=== PATIENT | male | born 1965 | race Caucasian/White ===

== ENCOUNTER 2018-02-14 20:26 | Emergency (ER) | payer OTHER ==
[2018-02-14] MEDS ORDERED: ALBUTEROL 2.5 MG/3 ML NEB SOL ONE (21:39)
[2018-02-14] MEDS ORDERED: predniSONE 20 MG TAB ONE (21:39)
[2018-02-14] MEDS ORDERED: IPRATROPIUM BROM 0.5MG/2.5ML ONE (21:39)
[2018-02-14 21:47] LABS: Absolute Lymphocytes (CBC) 0.8 K/uL (0.7-4.9); Absolute Monocytes 0.4 K/uL (0.1-1.3); Basophils % 0.4 % (0-1.3); Hematocrit 42.3 % (39.6-49.0); Lymphocytes % 9.8 % (15.3-44.8); MCH 30.9 pg (27.0-35.0); MCV 90.8 fL (80-100); MPV 7.8 fL (7.6-11.3); Monocytes % 5.3 % (3.3-12.3); RBC Red Blood Cell Count 4.66 M/uL (4.33-5.43)
[2018-02-14 21:50] LABS: Protime INR 1.05
[2018-02-14 22:07] LABS: Bilirubin Direct 0.2 mg/dL (0-0.2); Bilirubin Total 0.6 mg/dL (0.2-1.0); Magnesium 2.1 mg/dL (1.8-2.4); Potassium 3.9 mmol/L (3.5-5.1); Protein, Total 7.6 g/dL (6.4-8.2)
[2018-02-14] MEDS ORDERED: ACETAMINOPHEN 500 MG TAB ONE (22:21)
[2018-02-14] MEDS ORDERED: LEVALBUTEROL 1.25 MG/3 ML NEB ONE (23:21)
--- NOTE | 2018-02-14 23:35 | ER ---
Nurse's Notes [facility] Name: Jake Haynes II Age: 52 yrs Sex: Male : 1965 Arrival Date: 02/14/2018 Time: 20:29 Bed 20 Private MD: Thomas Montoya Diagnosis: Bronchitis, not specified as acute or chronic Presentation: 02/14 20:52 Presenting complaint: Patient states: He has been having a chronic cough since August. ea Pt reports last Friday he started getting SOB and wheezing. Pt reports the wheezing and coughing has gotten worse since then. Transition of care: patient was not received from another setting of care. Onset of symptoms was February 14, 2018. Risk Assessment: Do you want to hurt yourself or someone else? Patient reports no desire to harm self or others. Initial Sepsis Screen: Does the patient meet any 2 criteria? No. Patient's initial sepsis screen is negative. Does the patient have a suspected source of infection? No. Patient's initial sepsis screen is negative. Care prior to arrival: Medication(s) given: pro air inhaler. 20:52 Method Of Arrival: Ambulatory ea 20:52 Acuity: SONIDO 3 ea Triage Assessment: 20:58 General: Appears uncomfortable, Behavior is calm, cooperative, appropriate for age. ea Pain: Denies pain. EENT: No signs and/or symptoms were reported regarding the EENT system. Neuro: Level of Consciousness is awake, alert, obeys commands, Oriented to person, place, time, situation. Cardiovascular: Patient's skin is warm and dry. Respiratory: Reports shortness of breath on exertion Airway is patent Respiratory effort is even, unlabored, Respiratory pattern is regular, symmetrical, Breath sounds with wheezes bilaterally. Onset: The symptoms/episode began/occurred yesterday, the patient has mild shortness of breath. GI: Parent/caregiver reports the patient having bloating. : No signs and/or symptoms were reported regarding the genitourinary system. Derm: Skin is pink, warm \T\ dry. Musculoskeletal: Circulation, motion, and sensation intact. Historical: - Allergies: 20:57 No Known Allergies; ea - Home Meds: 20:57 benzonatate oral oral [Active]; amlodipine oral [Active]; ProAir HFA inhalation ea inhalation [Active]; Albuterol Inhl [Active]; Methylprednisolone Oral [Active]; - PMHx: 20:57 Hypertension; ea - Immunization history:: Adult Immunizations up to date. - Social history:: Smoking status: Patient/guardian denies using tobacco. - Ebola Screening: : No symptoms or risks identified at this time. Screenin:01 Abuse screen: Denies threats or abuse. Nutritional screening: No deficits noted. ea Tuberculosis screening: No symptoms or risk factors identified. Fall Risk None identified. Assessment: 22:51 Reassessment: Patient and/or family updated on plan of care and expected duration. Pain ea level reassessed. Patient is alert, oriented x 3, equal unlabored respirations, skin warm/dry/pink. 23:31 Reassessment: Patient and/or family updated on plan of care and expected duration. Pain ea level reassessed. Patient is alert, oriented x 3, equal unlabored respirations, skin warm/dry/pink. 23:49 Reassessment: Patient and/or family updated on plan of care and expected duration. Pain ea level reassessed. Patient is alert, oriented x 3, equal unlabored respirations, skin warm/dry/pink. Discharge instructions given to patient, verbalized the understanding of instruction Patient denies pain at this time. Patient states feeling better. Vital Signs: 21:00 BP 137 / 74; Pulse 90; Resp 20; Temp 98.2; Pulse Ox 96% on R/A; Weight 156.49 kg; ea Height 5 ft. 10 in. (177.80 cm); Pain 0/10; 22:51 BP 125 / 73; Pulse 93; Resp 18; Pulse Ox 98% on R/A; Pain 0/10; ea 23:40 BP 129 / 76; Pulse 80; Resp 18; Temp 98; Pulse Ox 98% on R/A; Pain 0/10; ea 21:00 Body Mass Index 49.50 (156.49 kg, 177.80 cm) ea ED Course: 20:29 Patient arrived in ED. al2 20:30 Thomas Montoya MD is Private Physician. al2 20:52 Alyssa Gutiérrez RN is Primary Nurse. ea 20:55 Triage completed. ea 21:01 Patient has correct armband on for positive identification. Bed in low position. Call ea light in reach. Side rails up X 1. 21:01 Arm band placed on right wrist. Patient placed in an exam room, on a stretcher, on ea pulse oximetry. 21:12 Campbell Curry NP is PHCP. pm1 21:12 Raffy Mota MD is Attending Physician. pm1 21:30 Initial lab(s) drawn, by ms, sent to lab. Inserted saline lock: 20 gauge in right cc antecubital area, using aseptic technique. Blood collected. 21:45 EKG done, by ED staff, reviewed by Campbell Curry NP. cc 21:51 X-ray completed. Portable x-ray completed in exam room. Patient tolerated procedure la2 well. 21:56 XRAY Chest (1 view) In Process Unspecified. EDMS 23:33 Thomas Montoya MD is Referral Physician. pm1 23:49 No provider procedures requiring assistance completed. IV discontinued, intact, ea bleeding controlled, No redness/swelling at site. Pressure dressing applied. Administered Medications: 21:40 Drug: Albuterol - atroVENT (3:1) (2.5 mg - 0.5 mg) 3 ml Route: Nebulizer; ea 22:10 Follow up: Response: No adverse reaction; Wheezing diminished ea 21:50 Drug: predniSONE 60 mg Route: PO; ea 22:10 Follow up: Response: No adverse reaction ea 22:20 Drug: Tylenol 1000 mg Route: PO; ea 23:00 Follow up: Response: No adverse reaction; Pain is decreased ea 23:30 Drug: Xopenex 1.25 mg Route: Inhalation; ea 23:32 Follow up: Response: No adverse reaction ea 23:45 Follow up: Response: No adverse reaction; Marked relief of symptoms ea 23:44 Drug: Tussionex Pennkinetic ER 5 ml Route: PO; ea 23:50 Follow up: Response: No adverse reaction; Medication administered at discharge. ea Outcome: 23:34 Discharge ordered by . pm1 23:50 Discharged to home ambulatory, with family. ea 23:50 Condition: improved 23:50 Discharge instructions given to patient, family, Instructed on discharge instructions, follow up and referral plans. medication usage, Demonstrated understanding of instructions, follow-up care, medications, Prescriptions given X 4. 23:54 Patient left the ED. ea Signatures: Dispatcher [employer] EDNM Annia Scott Campbell Curry NP SALES SUPERVISOR pm1 Alyssa Gutiérrez, RN RN ea [place] Mike la2 Soniya Castellanos2
--- NOTE | 2018-02-14 23:35 | EDPHYS ---
Physician Documentation [facility] Name: Jake Haynes II Age: 52 yrs Sex: Male : 1965 Arrival Date: 02/14/2018 Time: 20:29 Bed 20 Private MD: Thomas Montoya ED Physician Raffy Mota HPI: 02/14 22:00 This 52 yrs old Male presents to ER via Ambulatory with complaints of pm1 Breathing Difficulty. 22:00 The patient has shortness of breath at rest. Onset: The symptoms/episode began/occurred pm1 10 day(s) ago. Duration: The symptoms are continuous, and are steadily getting worse. The patient's shortness of breath is aggravated by nothing, is alleviated by inhaler. Associated signs and symptoms: Pertinent positives: productive cough, Pertinent negatives: chest pain, dizziness, fever, nausea, vomiting. Severity of symptoms: in the emergency department the symptoms are worse. The patient has been recently seen by a physician: the patient's primary care provider, with similar presenting complaints, X-rays were performed, prescribed inhaler and steroids. Patient has been taking medrol dose dennys and nebulizer treatments. Patient with cough since August that has been addressed by his PCP multiple times. most recently patient's BREE medications changed from ARB to calcium channel skylar. Patient had X-ray performed and given steroid and albuterol. instead of filling prescription, patient took Medrol dose dennys and albuterol nebulizers. Historical: - Allergies: 20:57 No Known Allergies; ea - Home Meds: 20:57 benzonatate oral oral [Active]; amlodipine oral [Active]; ProAir HFA inhalation ea inhalation [Active]; Albuterol Inhl [Active]; Methylprednisolone Oral [Active]; - PMHx: 20:57 Hypertension; ea - Immunization history:: Adult Immunizations up to date. - Social history:: Smoking status: Patient/guardian denies using tobacco. - Ebola Screening: : No symptoms or risks identified at this time. ROS: 22:00 Constitutional: Negative for fever, chills, and weight loss, Eyes: Negative for injury, pm1 pain, redness, and discharge, ENT: Negative for injury, pain, and discharge, Neck: Negative for injury, pain, and swelling, Cardiovascular: Negative for chest pain, palpitations, and edema. 22:00 Abdomen/GI: Negative for abdominal pain, nausea, vomiting, diarrhea, and constipation, Back: Negative for injury and pain, : Negative for injury, bleeding, discharge, and swelling, MS/Extremity: Negative for injury and deformity, Skin: Negative for injury, rash, and discoloration, Neuro: Negative for headache, weakness, numbness, tingling, and seizure. 22:00 Respiratory: Positive for cough, shortness of breath, wheezing. Exam: 22:00 Constitutional: This is a well developed, well nourished patient who is awake, alert, pm1 and in no acute distress. Head/Face: Normocephalic, atraumatic. Eyes: Pupils equal round and reactive to light, extra-ocular motions intact. Lids and lashes normal. Conjunctiva and sclera are non-icteric and not injected. Cornea within normal limits. Periorbital areas with no swelling, redness, or edema. ENT: Nares patent. No nasal discharge, no septal abnormalities noted. Tympanic membranes are normal and external auditory canals are clear. Oropharynx with no redness, swelling, or masses, exudates, or evidence of obstruction, uvula midline. Mucous membranes moist. Neck: Trachea midline, no thyromegaly or masses palpated, and no cervical lymphadenopathy. Supple, full range of motion without nuchal rigidity, or vertebral point tenderness. No Meningismus. Chest/axilla: Normal chest wall appearance and motion. Nontender with no deformity. No lesions are appreciated. Cardiovascular: Regular rate and rhythm with a normal S1 and S2. No gallops, murmurs, or rubs. Normal PMI, no JVD. No pulse deficits. 22:00 Abdomen/GI: Soft, non-tender, with normal bowel sounds. No distension or tympany. No guarding or rebound. No evidence of tenderness throughout. Back: No spinal tenderness. No costovertebral tenderness. Full range of motion. Skin: Warm, dry with normal turgor. Normal color with no rashes, no lesions, and no evidence of cellulitis. MS/ Extremity: Pulses equal, no cyanosis. Neurovascular intact. Full, normal range of motion. 22:00 Respiratory: the patient does not display signs of respiratory distress, Respirations: normal, Breath sounds: wheezing: is heard diffusely. 22:00 Neuro: Orientation: is normal, Motor: is normal, moves all fours. Vital Signs: 21:00 BP 137 / 74; Pulse 90; Resp 20; Temp 98.2; Pulse Ox 96% on R/A; Weight 156.49 kg; ea Height 5 ft. 10 in. (177.80 cm); Pain 0/10; 22:51 BP 125 / 73; Pulse 93; Resp 18; Pulse Ox 98% on R/A; Pain 0/10; ea 23:40 BP 129 / 76; Pulse 80; Resp 18; Temp 98; Pulse Ox 98% on R/A; Pain 0/10; ea 21:00 Body Mass Index 49.50 (156.49 kg, 177.80 cm) ea MDM: 21:13 Patient medically screened. pm1 23:33 Data reviewed: vital signs. Data interpreted: Pulse oximetry: on room air is 98 %. pm1 Interpretation: normal. Counseling: I had a detailed discussion with the patient and/or guardian regarding: the historical points, exam findings, and any diagnostic results supporting the discharge/admit diagnosis, lab results, radiology results, the need for outpatient follow up, to return to the emergency department if symptoms worsen or persist or if there are any questions or concerns that arise at home. 23:45 ED course: Patient's wheezing improved with breathing treatments and he feels ready to pm1 go home. patient will be prescribed new medications to fill. Instructed not to take medications. 02/14 21:21 Order name: Basic Metabolic Panel; Complete Time: 22:23 pm1 02/14 21:21 Order name: CBC with Diff; Complete Time: 22:23 pm1 02/14 21:21 Order name: Ckmb; Complete Time: 22:23 pm02/14 21:21 Order name: CPK; Complete Time: 22:23 pm1 02/14 21:21 Order name: LFT's; Complete Time: 22:23 pm1 02/14 21:21 Order name: Magnesium; Complete Time: 22:23 pm1 02/14 21:21 Order name: NT PRO-BNP; Complete Time: 22:23 pm1 02/14 21:21 Order name: PT-INR; Complete Time: 22:23 pm1 02/14 21:21 Order name: Ptt, Activated; Complete Time: 22:23 pm1 02/14 21:21 Order name: Troponin (emerg Dept Use Only); Complete Time: 22:23 pm1 02/14 21:21 Order name: XRAY Chest (1 view) pm02/14 21:26 Order name: Blood Culture Adult (2) pm1 02/14 21:21 Order name: EKG; Complete Time: 21:22 pm1 02/14 21:21 Order name: Cardiac monitoring; Complete Time: 21:35 pm1 02/14 21:21 Order name: EKG - Nurse/Tech; Complete Time: 22:19 pm1 02/14 21:21 Order name: IV Saline Lock; Complete Time: 21:35 pm1 02/14 21:21 Order name: Labs collected and sent; Complete Time: 21:35 pm1 02/14 21:21 Order name: O2 Per Protocol; Complete Time: 21:35 pm1 02/14 21:21 Order name: O2 Sat Monitoring; Complete Time: 21:35 pm1 Administered Medications: 21:40 Drug: Albuterol - atroVENT (3:1) (2.5 mg - 0.5 mg) 3 ml Route: Nebulizer; ea 22:10 Follow up: Response: No adverse reaction; Wheezing diminished ea 21:50 Drug: predniSONE 60 mg Route: PO; ea 22:10 Follow up: Response: No adverse reaction ea 22:20 Drug: Tylenol 1000 mg Route: PO; ea 23:00 Follow up: Response: No adverse reaction; Pain is decreased ea 23:30 Drug: Xopenex 1.25 mg Route: Inhalation; ea 23:32 Follow up: Response: No adverse reaction ea 23:45 Follow up: Response: No adverse reaction; Marked relief of symptoms ea 23:44 Drug: Tussionex Pennkinetic ER 5 ml Route: PO; ea 23:50 Follow up: Response: No adverse reaction; Medication administered at discharge. ea Disposition: 02/14/18 23:34 Discharged to Home. Impression: Bronchitis, not specified as acute or chronic. - Condition is Stable. - Discharge Instructions: Acute Bronchitis, How to Use an Inhaler, Cough, Adult. - Prescriptions for Albuterol Sulfate 2.5 mg /3 mL (0.083 %) Inhalation Solution for Nebulization - inhale 1 unit by NEBULIZATION route every 8 hours As needed; 1 box. Medrol (Dennys) 4 mg Oral Tablets, Dose Pack - take 1 tablet by ORAL route as directed - follow package instructions; 1 packet. Albuterol Sulfate 90 mcg/actuation - inhale 1-2 puff by INHALATION route every 4-6 hours; 1 Inhaler. Guaifenesin AC 10- 100 mg/5 mL Oral Liquid - take 10 milliliter by ORAL route every 4 hours As needed; 240 milliliter. - Medication Reconciliation Form, Thank You Letter, Antibiotic Education, Prescription Opioid Use form. - Follow up: Emergency Department; When: As needed; Reason: Worsening of condition. Follow up: Thomas Montoya MD; When: 2 - 3 days; Reason: Recheck today's complaints, Continuance of care, Re-evaluation by your physician. - Problem is new. - Symptoms have improved. Addendum: 02/16/2018 09:27 Co-signature as Attending Physician, Raffy Mota MD I agree with the assessment and c snider plan of care. Signatures: Dispatcher [employer] EDNM Raffy Mota MD MD cha Marinas, Patrick, FORMING ROLL OPERATOR FORMING ROLL OPERATOR pm1 Alyssa Gutiérrez RN RN ea Corrections: (The following items were deleted from the chart) 02/14 23:54 23:34 02/14/2018 23:34 Discharged to Home. Impression: Bronchitis, not specified as ea acute or chronic. Condition is Stable. Forms are Medication Reconciliation Form, Thank You Letter, Antibiotic Education, Prescription Opioid Use. Follow up: Emergency Department; When: As needed; Reason: Worsening of condition. Follow up: Thomas Montoya; When: 2 - 3 days; Reason: Recheck today's complaints, Continuance of care, Re-evaluation by your physician. Problem is new. Symptoms have improved. pm1
[2018-02-14] MEDS ORDERED: HYDROCODONE/CHLORPHEN 5 ML/OSYR ONE (23:44)
--- NOTE | 2018-02-15 10:54 | EKG ---
Test Date: 2018-02-14 Test Time: 21:40:17 Wet Wash Assembler: ISABELLE MEASUREMENT RESULTS: Intervals: Rate: 88 VA: 152 QRSD: 96 QT: 374 QTc: 452 [place]: P: 37 VA: 152 QRS: 25 T: 42 INTERPRETIVE STATEMENTS: Normal sinus rhythm Normal ECG Compared to ECG 06/06/2003 13:23:00 No significant changes Electronically Signed On 02-15-18 10:54:06 CDT by Noe Ferrer
--- NOTE | 2018-02-15 13:12 | RAD REPORT ---
EXAM DESCRIPTION: RAD - Chest Single View - 02/14/2018 9:56 pm CLINICAL HISTORY: Cough;SOB Chest pain. COMPARISON: Chest Pa And Lat (2 Views) dated 02/06/2018 FINDINGS: Portable technique limits examination quality. The lungs are grossly clear. The heart is normal in size. No displaced fractures. IMPRESSION: No acute intrathoracic process suspected.
== END 2018-02-14 23:54 | disposition home or self-care (01) ==
LOC: ER 20:26
DX: J40 Bronchitis, not specified as acute or chronic (principal); I10 Essential (primary) hypertension
CPT/HCPCS: 36415; 71045; 80048; 80076; 82550; 82553; 83735; 83880; 84484; 85025; 85610; 85730; 87040; 93005; 94640; 99284; J7512